=== PATIENT | female | born 1950 | race Caucasian/White ===

== ENCOUNTER 2016-09-23 11:12 | Day surgery (SDC) | payer BC ==
[2016-09-23] VITALS (20 sets, daily range): BP systolic 102–130; BP diastolic 48–65; PULSE 72–84; RESP 10–25; Ht 165.1 cm; Wt 75.3 kg
[~2016-09-23] VITALS: Ht 165.1 cm; Wt 75.3 kg
[~2016-09-23 11:12] MED LIST: SEVOFLURANE 15 MIN ONE
[2016-09-23] MEDS ORDERED: LIDOCAINE 2% (SDV) 5 ML INJ ONE (11:41)
[2016-09-23] MEDS ORDERED: PROPOFOL 20 ML ONE (11:41)
[2016-09-23] MEDS ORDERED: MIDAZOLAM 1 MG/ML 2 ML INJ ONE (11:41)
[2016-09-23] MEDS ORDERED: FENTAnyl 50 MCG/ML VIAL ONE (11:41)
[2016-09-23] MEDS ORDERED: SIMV10TA PO (11:56)
[2016-09-23] MEDS ORDERED: LEVO75TA65 PO (11:56)
[2016-09-23] MEDS ORDERED: METH50TA6 PO (11:57)
[2016-09-23] MEDS ORDERED: METF1000 PO (11:57)
[2016-09-23] MEDS ORDERED: LYR75 PO (12:00)
[2016-09-23] MEDS ORDERED: AMIT10TA6 PO (12:04)
[2016-09-23] MEDS ORDERED: BUPR150T6 PO (12:05)
[2016-09-23] MEDS ORDERED: EMPA1TAB PO (12:06)
[2016-09-23] MEDS ORDERED: AZOP1OP10 BOTH EYES (12:07)
[2016-09-23] MEDS ORDERED: INSU200I SQ (12:07)
[2016-09-23] MEDS ORDERED: SOLIQUA SQ (12:10)
--- NOTE | 2016-09-23 13:05 | HPN ---
Date/Time of Note Date/Time of Note DATE: 09/23/16 TIME: 13:04 Interval H&P Admission Note Pt. seen H&P reviewed: No system changes JOSE RANDALL Sep 23, 2016 13:05
[2016-09-23] MEDS ORDERED: DEXAMETHASONE 4 MG/ML 1 ML INJ ONE (13:09)
[2016-09-23] MEDS ORDERED: BUPIVACAINE 0.5% (SDV) 30 ML INJ ONE (13:09)
[2016-09-23] MEDS ORDERED: LIDOCAINE 1% (MPF) 30 ML INJ ONE (13:09)
[2016-09-23] MEDS ORDERED: CLINDAMYCIN 900 MG/D5W (PMX) 50 ML IVPB ONE (13:11)
[2016-09-23] MEDS ORDERED: METOCLOPRAMIDE 10 MG INJ ONE (13:42)
[2016-09-23] MEDS ORDERED: ONDANSETRON 4 MG INJ ONE (13:42)
[2016-09-23] MEDS ORDERED: ACETAMINOPHEN 1000MG/100ML IV 100 ML ONE (13:44)
[2016-09-23] MEDS ORDERED: EPHEDrine SULFATE 50 MG/5 ML SYG ONE (13:56)
[2016-09-23] MEDS ORDERED: PHENYLephrine (100 MCG/ML) 5ML SYG ONE (13:56)
[2016-09-23] MEDS ORDERED: DIPHENHYDRAMINE 50 MG INJ IV PRN (14:00)
[2016-09-23] MEDS ORDERED: PROCHLORPERAZINE 10 MG INJ IV PRN (14:00)
[2016-09-23] MEDS ORDERED: INSULIN ASPART [NOVOLOG] 3 ML PEN SC ONE (14:00)
[2016-09-23] MEDS ORDERED: EPHEDrine SULFATE 50 MG/5 ML SYG IV PRN (14:00)
[2016-09-23] MEDS ORDERED: KETOROLAC 30 MG INJ IV ONE (14:00)
[2016-09-23] MEDS ORDERED: LABETALOL HCL 20MG INJ IV PRN (14:00)
[2016-09-23] MEDS ORDERED: hydrALAzine 20 MG INJ IV PRN (14:00)
[2016-09-23] MEDS ORDERED: ONDANSETRON 4 MG INJ IV PRN (14:00)
[2016-09-23] MEDS ORDERED: BUPIVACAINE 0.5% 30 ML VIAL INJ ONE (14:11)
[2016-09-23] MEDS ORDERED: KETOROLAC 30 MG INJ ONE (14:24)
[2016-09-23] MEDS: FENTAnyl 50 MCG/ML VIAL IV PRN ×5 (14:58→15:45)
--- NOTE | 2016-09-23 15:46 | OPR ---
DATE OF OPERATION: 09/23/2016 PREOPERATIVE DIAGNOSIS: Painful soft tissue mass, plantar left foot. POSTOPERATIVE DIAGNOSIS: Painful soft tissue mass, plantar left foot. OPERATION PERFORMED: Removal of soft tissue mass, plantar left foot. SURGEON: Gary Blanco MD ANESTHESIA: General. DESCRIPTION OF PROCEDURE: The patient was brought into the OR and placed on the operating table in a secure supine position. A pneumatic ankle tourniquet was placed about the left ankle. Following general anesthesia, the foot was prepped and draped in the usual sterile manner. After an Esmarch bandage was used to exsanguinate the blood, a pneumatic ankle tourniquet was inflated to 250 mmHg. A plantar incision was made in the form of a lazy S over the palpable soft tissue mass. The incision was deepened using sharp and blunt dissection. All vascular structures were visualized and retracted. At this point, the soft tissue mass was visualized to be within the medial band of the plantar fascia. All soft tissue adhesions were freed using tenotomy scissors, and the mass was noted to be approximately 2.5 cm x 1.5 cm, and this was excised ; approximately 0.5cm of plantar fascia was excised on each side of the mass.. After copious lavage, 3-0 Vicryl and 3-0 nylon were used to reapproximate the skin edge. Ten mL of 0.5% Marcaine was injected for postop pain. Xeroform gauze, Kerlix, and an Felipe bandage were used for dressing. Immediate hyperemia was noted to digits 1 through 5 of the left foot upon deflation of the tourniquet. The patient left the operating room in stable condition. PLAN: The patient will be followed up on 09/30/2016 in the clinic. The patient was given postop instructions including to weight-bear only with crutches. Dictated By: GARY HOOK/KENNETH Conf#: [id number] DID#: [id number]
== END 2016-09-23 16:55 | disposition home or self-care (01) ==
LOC: SDS 11:12
PROVIDERS: ATTEND Podiatrist
DX: M72.2 Plantar fascial fibromatosis (principal); E78.5 Hyperlipidemia, unspecified; E11.9 Type 2 diabetes mellitus without complications
CPT/HCPCS: 28060; 82962; 88307; J0131; J1885; J2250; J2370; J2405; J2765; J3010; J1100; J1815